=== PATIENT | female | born 1950 | race Caucasian/White ===

== ENCOUNTER 2017-12-24 12:13 | Emergency (ER) | payer MEDICARE, OTHER ==
[~2017-12-24] VITALS: Ht 167.6 cm; Wt 106.1 kg
[2017-12-24] MEDS ORDERED: ALBUTEROL/IPRATROPIUM 3 ML NEB NEB ONE (15:00)
--- NOTE | 2017-12-24 15:48 | Diagnostic Imaging Report ---
PROCEDURE: Frontal and lateral views of the chest. COMPARISON: None. INDICATIONS: SHORTNESS OF BREATH FINDINGS: Lines/tubes: None. Lungs: T mild prominence of the ulnar vasculature bilaterally. There is no evidence of pneumonia or pulmonary edema. Pleura: There is no pleural effusion or pneumothorax. Heart and mediastinum: The cardiac silhouette is mildly enlarged. Bones: No acute bony abnormality. Mild spondylosis of the thoracic spine. IMPRESSION: 1. Mild cardiomegaly and mild pulmonary venous congestion. Donna Zepeda M.D. Dictated by: Donna Zepeda M.D. on 12/24/2017 at 15:53 Electronically approved by: Donna Zepeda M.D. on 12/24/2017 at 15:53
[2017-12-24 18:36] VITALS: BP 157/72
== END 2017-12-24 18:41 | disposition home or self-care (01) ==
LOC: ER 12:13
DX: R06.02 Shortness of breath (principal); R06.09 Other forms of dyspnea; R05 Cough
CPT/HCPCS: 71046; 94640; 99284

== ENCOUNTER → 2018-01-22 | Outpatient (CLI) | payer MEDICARE, OTHER ==
--- NOTE | 2018-01-22 14:14 | Diagnostic Imaging Report ---
EXAMINATION: CT scan of the chest without contrast. TECHNIQUE: Spiral CT images of the chest were performed from the lung apices to the level of the adrenal glands. No intravenous contrast was administered per physician's request. Coronal and sagittal reformatted images were obtained. COMPARISON: Chest 2 views 12/24/2017, CT chest 11/26/2012 CLINICAL HISTORY:Changes on chest x-ray, shortness of breath, cough DISCUSSION: ABSENCE OF INTRAVENOUS CONTRAST DECREASES SENSITIVITY FOR DETECTION OF FOCAL LESIONS AND VASCULAR PATHOLOGY. LINES/TUBES: None. LUNGS AND AIRWAYS: Minimal patchy groundglass opacities and bronchial wall thickening along the posterior right lower lobe segmental bronchus (series 3, image 105), with associated linear opacity. 3 mm pulmonary nodule in the left lower lobe (series 3, image 56). No other pulmonary nodules. No masses or consolidation. Airways are clear, without loculations. PLEURA: No pneumothorax or pleural effusions. HEART AND MEDIASTINUM: The thyroid gland is normal. Mild cardiomegaly. No pericardial effusion. Aorta is nonaneurysmal. Main pulmonary artery is enlarged, measuring 3.8 cm. LYMPH NODES: No mediastinal or axillary adenopathy. Difficult to evaluate for hilar adenopathy given the lack of intravenous contrast. ABDOMEN: Limited unenhanced views of the upper abdomen show no abnormality within the visualized liver, spleen, pancreas, or adrenal glands. BONES AND SOFT TISSUES: No aggressive lytic lesion. Multilevel degenerative disc changes in the thoracic spine. Punctate and 2 mm calcifications in the left breast (series 2, image 62). IMPRESSION: 1. Findings in the posterior right lower lobe segmental bronchus distribution may represent infection such as mild bronchitis in the acute setting versus resolving infection if more chronic. No consolidation. There is associated subsegmental atelectasis or scarring. 2. 3 mm pulmonary nodule in the left lower lobe. If the patient is low risk, no further follow-up is indicated per [employer]ner society guidelines 2017. 3. Punctate 2 mm calcifications in the left breast. Correlate with mammography. Signed by: Dr. Young Encarnacion M.D. on 01/22/2018 2:11 PM
== END ==
LOC: CT 13:03
PROVIDERS: ATTEND Internal Medicine Critical Care Medicine
DX: R05 Cough (principal); R06.02 Shortness of breath; R91.8 Other nonspecific abnormal finding of lung field
CPT/HCPCS: 71250

== ENCOUNTER 2020-02-24 07:52 | Observation (INO) | payer MEDICARE, OTHER ==
[2020-02-23 15:06] LABS: BASOPHILS # (AUTO) 0.1 (0.0-0.1); BASOPHILS % 0.7 % (0.0-1.0); EOSINOPHILS # (AUTO) 0.1 (0.0-0.4); HEMATOCRIT 38.4 % (34.2-44.1); LYMPHOCYTES # (AUTO) 2.1 (1.0-3.2); LYMPHOCYTES % 25.3 % (18.0-39.1); MEAN CORPUSCULAR HEMOGLOBIN 25.8 pg (28-32); MEAN CORPUSCULAR HGB CONC 31.3 g/dL (31-35); MEAN CORPUSCULAR VOLUME 82.6 fL (81-99); MONOCYTES # (AUTO) 0.7 (0.2-0.8); NEUTROPHILS # (AUTO) 5.4 (2.1-6.9); NEUTROPHILS % 64.8 % (38.7-80.0); PLATELET COUNT 358 x10e3/uL (140-360); RED BLOOD COUNT 4.65 x10e6/uL (3.6-5.1); RED CELL DISTRIBUTION WIDTH 14.7 % (11.7-14.4)
[2020-02-23 15:19] LABS: INR 1.04; PARTIAL THROMBOPLASTIN TIME 26.6 seconds (23.8-35.5); PROTHROMBIN TIME 14.1 seconds (11.9-14.5)
[2020-02-23 15:28] LABS: CALCIUM 9.3 mg/dL (8.4-10.2); CREATININE, SERUM 1.11 mg/dL (0.57-1.11)
[~2020-02-24] VITALS: Ht 167.6 cm; Wt 111.1 kg
[~2020-02-24 07:52] MED LIST: BIOTIN2500 MCG PO; IBUPROFEN 800MG/ 200ML 200 ML IV ONE; LEVOTHYROXINE50 MCG PO; LIDOCAINE HCL (LTA) 4 ML SOLN ONE; LOSARTAN POTASS25 MG PO; METOPROLOL SUCC25 MG PO; MOBIC15 MG PO; NOVOLOG MI100 UNIT/1 SC; OCUVITE TABLET1 EAC1 PO; PROTONIX20 MG PO; ROPINIROLE HCL2 MG PO; TIZANIDINE HCL4 MG PO
[2020-02-24] MEDS ORDERED: LIDOCAINE 1% W/EPINEPHRINE 20 ML VIAL ONE (08:33)
[2020-02-24] MEDS ORDERED: VANCOMYCIN HCL 1 GM VIAL ONE (08:33)
[2020-02-24] MEDS ORDERED: THROMBIN FOR SOLN 5,000 UNIT VIAL ONE (08:33)
[2020-02-24] MEDS ORDERED: CITALOPRAM HBR20 MG PO (08:35)
[2020-02-24] MEDS ORDERED: LOSARTAN-HCTZ1 EAC2 PO (08:35)
[2020-02-24] MEDS ORDERED: glucocil PO (08:36)
[2020-02-24] MEDS ORDERED: LIMBITROL PO (08:36)
[2020-02-24] MEDS ORDERED: SINGULAIR10 MG PO (08:37)
[2020-02-24] MEDS ORDERED: CEFAZOLIN SOD 1 GM/NS 50ML 100 ML IV ONE (09:34)
[2020-02-24] MEDS ORDERED: ACETAMINOPHEN 325 MG TAB PO PRN (11:15)
[2020-02-24] MEDS ORDERED: ONDANSETRON HCL INJ 2MG/ML 2ML 2 MG/ML VIAL IV PRN (11:15)
[2020-02-24] MEDS ORDERED: CEPACOL SORE THROAT LOZENGES PO PRN (11:15)
[2020-02-24] MEDS ORDERED: MORPHINE SULFATE 5 MG/ML VIAL IM PRN (11:15)
[2020-02-24] MEDS ORDERED: HYDROMORPHONE 2MG/ML 2 MG/ML ML IV PRN (11:15)
[2020-02-24] MEDS ORDERED: PROMETHAZINE HCL (IM) 25 MG/ML VIAL IM PRN (11:15)
[2020-02-24] MEDS ORDERED: MAGNESIUM/ALUMINUM/SIMETHICONE 30 ML UDC PO PRN (11:15)
[2020-02-24] MEDS ORDERED: OXYCODONE/ACETAMINOPHEN 5-325 1 EACH TABLET PO PRN (11:15)
[2020-02-24] MEDS ORDERED: CARISOPRODOL 350 MG TAB PO PRN (11:15)
[2020-02-24] MEDS ORDERED: TIZANIDINE HCL 4 MG TAB PO PRN (11:15)
[2020-02-24] MEDS ORDERED: NEOSTIGMINE 1 MG/ML 10ML VIAL ONE (12:04)
[2020-02-24] MEDS ORDERED: DEXAMETHASONE SOD PHOS INJ 4 MG/ML VIAL ONE (12:04)
[2020-02-24] MEDS ORDERED: LIDOCAINE HCL 2% LOCAL INJ 5 ML SDV VIAL INJ ONE (12:04)
[2020-02-24] MEDS ORDERED: PROPOFOL IV EMULSION 10 MG/ML 20 ML VIAL ONE (12:04)
[2020-02-24] MEDS ORDERED: LIDOCAINE HCL 2% JELLY 5 ML TUBE ONE (12:04)
[2020-02-24] MEDS ORDERED: ONDANSETRON HCL INJ 2MG/ML 2ML 2 MG/ML VIAL ONE (12:04)
[2020-02-24] MEDS ORDERED: GLYCOPYRROLATE INJ 0.2 MG/ML VIAL ONE (12:04)
[2020-02-24] MEDS ORDERED: SEVOFLURANE INHAL SOLN 250 ML PEN BTL ONE (12:04)
[2020-02-24] MEDS ORDERED: ROCURONIUM BROMIDE 10 MG/ML 5ML VIAL IV ONE (12:04)
[2020-02-24] MEDS ORDERED: FENTANYL CITRATE/PF 100MCG/2 ML INJ ONE ×2 (13:03→13:24)
[2020-02-24 13:50] VITALS: BP 126/69
[2020-02-24 14:07] VITALS: BP 126/69
[2020-02-24] MEDS: LACTATED RINGER'S 1,000 ML IV SCH (15:04)
[2020-02-24 15:51] VITALS: BP 180/73
[2020-02-24] MEDS: OXYCODONE/ACETAMINOPHEN 5-325 1 EACH TABLET PO PRN ×2 (16:30→20:36)
[2020-02-24] MEDS: INSULIN ASPART 70/30 100 UNITS/ML VIAL SC SCH (16:57)
[2020-02-24] MEDS: CEFAZOLIN SOD 1 GM/NS 50ML 50 ML IV SCH (16:57)
[2020-02-24 20:00] VITALS: BP 139/68
[2020-02-24 20:05] VITALS: BP_SYST 121; BP_SYST 139; BP_DIAS 68; BP_DIAS 77
[2020-02-24] MEDS ORDERED: ZOLPIDEM TARTRATE 5 MG TAB PO PRN (21:00)
[2020-02-24] MEDS ORDERED: MONTELUKAST SODIUM 10 MG TAB PO SCH (21:00)
[2020-02-24] MEDS ORDERED: METOPROLOL SUCCINATE 25 MG TAB XL PO SCH (21:00)
[2020-02-25 00:05] VITALS: BP 124/57
[2020-02-25] MEDS: LACTATED RINGER'S 1,000 ML IV SCH ×2 (03:02→03:18)
[2020-02-25] MEDS: CEFAZOLIN SOD 1 GM/NS 50ML 50 ML IV SCH ×2 (03:18→10:24)
[2020-02-25 04:00] VITALS: BP 128/66
[2020-02-25] MEDS: OXYCODONE/ACETAMINOPHEN 5-325 1 EACH TABLET PO PRN ×2 (05:00→09:30)
[2020-02-25 05:41] VITALS: BP 124/57
[2020-02-25] MEDS ORDERED: LEVOTHYROXINE SODIUM 25 MCG TABLET PO SCH (06:00)
[2020-02-25] MEDS ORDERED: PANTOPRAZOLE SOD 40 MG TABEC PO SCH (07:30)
[2020-02-25 08:20] VITALS: BP 142/68
[2020-02-25] MEDS: INSULIN ASPART 70/30 100 UNITS/ML VIAL SC SCH (08:41)
[2020-02-25] MEDS ORDERED: LOSARTAN POTASSIUM 100 MG TAB PO SCH (09:00)
[2020-02-25] MEDS ORDERED: LEVOTHYROXINE SODIUM 50 MCG TAB PO SCH (09:00)
[2020-02-25] MEDS ORDERED: NON-FORMULARY MEDICATION (Losartan/Hydrochlorothiazide (Losartan-Hctz 100-12.5 Mg Tab) 1 T PO SCH (09:00)
[2020-02-25] MEDS ORDERED: MELOXICAM 7.5 MG TAB PO SCH (09:00)
[2020-02-25] MEDS ORDERED: CITALOPRAM HYDROBROMIDE 20 MG TAB PO SCH (09:00)
[2020-02-25] MEDS ORDERED: OCUVITE PRESERVISION TABLET PO SCH (09:00)
[2020-02-25] MEDS ORDERED: ROPINIROLE HCL 2 MG TAB PO SCH (09:00)
[2020-02-25] MEDS ORDERED: HYDROCHLOROTHIAZIDE 25 MG TAB PO SCH (09:00)
== END 2020-02-25 10:32 | disposition home or self-care (01) ==
LOC: OR 07:52 → PACU V 11:10 → MED/SURG 14:20
PROVIDERS: ADMIT Neurological Surgery; ATTEND Neurological Surgery
DX: M50.021 Cervical disc disorder at C4-C5 level with myelopathy (principal); M51.17 Intervertebral disc disorders with radiculopathy, lumbosacral region; E11.9 Type 2 diabetes mellitus without complications; K21.9 Gastro-esophageal reflux disease without esophagitis; G47.33 Obstructive sleep apnea (adult) (pediatric); F41.9 Anxiety disorder, unspecified; E78.5 Hyperlipidemia, unspecified; E03.9 Hypothyroidism, unspecified; Z01.810 Encounter for preprocedural cardiovascular examination; Z01.812 Encounter for preprocedural laboratory examination; Z01.818 Encounter for other preprocedural examination; Z11.59 Encounter for screening for other viral diseases; Z96.651 Presence of right artificial knee joint; Z87.891 Personal history of nicotine dependence; Z79.4 Long term (current) use of insulin
CPT/HCPCS: 20931; 22551; 22845; 36415 ×3; 71046; 72040; 80048; 82948 ×2; 85025; 85610; 85730; 86850; 86900; 88304; 93005; C1713 ×2; C9359; G0378 ×2; J0690 ×2; J1100; J1170; J1815; J2001 ×2; J2405 ×2; J2704; J2710; J3010; J3370; J7121 ×2; S0164; U0002; 77003

== ENCOUNTER 2020-12-14 11:31 | Emergency (ER) | payer MEDICARE, OTHER ==
[~2020-12-14] VITALS: Ht 167.6 cm; Wt 111.1 kg
[~2020-12-14 11:31] MED LIST changes: +CITALOPRAM HBR20 MG PO; -IBUPROFEN 800MG/ 200ML 200 ML IV ONE; -LIDOCAINE HCL (LTA) 4 ML SOLN ONE; +LIMBITROL PO; +LOSARTAN-HCTZ1 EAC2 PO; +SINGULAIR10 MG PO; +glucocil PO
[2020-12-14 12:08] LABS: BASOPHILS # (AUTO) 0.1 (0.0-0.1); BASOPHILS % 0.5 % (0.0-1.0); EOSINOPHILS # (AUTO) 0.1 (0.0-0.4); EOSINOPHILS % 1.1 % (0.0-6.0); HEMOGLOBIN 11.3 g/dL (12.0-16.0); LYMPHOCYTES # (AUTO) 1.7 (1.0-3.2); LYMPHOCYTES % 14.7 % (18.0-39.1); MEAN CORPUSCULAR HEMOGLOBIN 27.5 pg (28-32); MEAN CORPUSCULAR HGB CONC 31.4 g/dL (31-35); MEAN CORPUSCULAR VOLUME 87.6 fL (81-99); MONOCYTES # (AUTO) 1.1 (0.2-0.8); MONOCYTES % 9.5 % (4.4-11.3); NEUTROPHILS # (AUTO) 8.2 (2.1-6.9); NEUTROPHILS % 73.1 % (38.7-80.0); PLATELET COUNT 280 x10e3/uL (140-360); RED BLOOD COUNT 4.11 x10e6/uL (3.6-5.1); RED CELL DISTRIBUTION WIDTH 16.1 % (11.7-14.4)
[2020-12-14 12:31] LABS: ALANINE AMINOTRANSFERASE 14 IU/L (0-55); ALBUMIN 3.6 g/dL (3.5-5.0); ALBUMIN/GLOBULIN RATIO 1.3 (0.8-2.0); ALKALINE PHOSPHATASE 60 IU/L (40-150); ANION GAP 13.3 mmol/L (8-16); BLOOD UREA NITROGEN 19 mg/dL (7-26); BUN/CREATININE RATIO 19 (6-25); CALCIUM 8.7 mg/dL (8.4-10.2); CARBON DIOXIDE 29 mmol/L (22-29); CHLORIDE 104 mmol/L (98-107); CREATINE KINASE 126 IU/L (29-168); CREATININE, SERUM 0.99 mg/dL (0.57-1.11); EST GLOMERULAR FILTRATION RATE 55 ML/MIN (60-); GLUCOSE 69 mg/dL (74-118); POTASSIUM 3.3 mmol/L (3.5-5.1); SODIUM 143 mmol/L (136-145)
[2020-12-14 15:11] VITALS: BP 138/90
== END 2020-12-14 15:13 | disposition home or self-care (01) ==
LOC: ER 11:40
DX: E11.649 Type 2 diabetes mellitus with hypoglycemia without coma (principal); R05 Cough; J06.9 Acute upper respiratory infection, unspecified; K21.9 Gastro-esophageal reflux disease without esophagitis; G47.33 Obstructive sleep apnea (adult) (pediatric)
CPT/HCPCS: 36415; 71045; 80053; 82550; 82553; 82948; 83880; 84484; 85025; 93005; 99284; U0002

== ENCOUNTER → 2024-07-20 | Day surgery (SDC) | payer MEDICARE, OTHER ==
[2024-07-06 14:54] LABS: BASOPHILS # (AUTO) 0.1 (0.0-0.1); BASOPHILS % 0.8 % (0.0-1.0); EOSINOPHILS # (AUTO) 0.2 (0.0-0.4); EOSINOPHILS % 2.4 % (0.0-6.0); HEMATOCRIT 40.5 % (34.2-44.1); LYMPHOCYTES # (AUTO) 2.3 (1.0-3.2); LYMPHOCYTES % 29.8 % (18.0-39.1); MEAN CORPUSCULAR HGB CONC 34.6 g/dL (31-35); MEAN CORPUSCULAR VOLUME 86.9 fL (81-99); MONOCYTES # (AUTO) 0.7 (0.2-0.8); MONOCYTES % 9.2 % (4.4-11.3); NEUTROPHILS # (AUTO) 4.4 (2.1-6.9); NEUTROPHILS % 57.5 % (38.7-80.0); PLATELET COUNT 243 x10e3/uL (140-360); RED BLOOD COUNT 4.66 x10e6/uL (3.6-5.1); RED CELL DISTRIBUTION WIDTH 13.8 % (11.7-14.4); WHITE BLOOD COUNT 7.58 x10e3/uL (4.8-10.8)
[2024-07-06 15:15] LABS: CALCIUM 9.3 mg/dL (8.4-10.2)
[~2024-07-20] MED LIST changes: +ACETAMINOPHEN 1000 MG/100 ML 100 ML IV ONE; +DEXAMETHASONE SOD PHOS INJ 4 MG/ML SDV ONE; +EPHEDRINE SULFATE INJ 50 MG/ML VIAL ONE; +GLYCOPYRROLATE INJ 0.2 MG/ML VIAL ONE; +HYDROCODON-ACE1 EAC9 PO; +LIDOCAINE HCL 2% LOCAL INJ 5 ML SDV VIAL INJ ONE; -NOVOLOG MI100 UNIT/1 SC; +NOVOLOG MI100 UNIT/1 SQ; +ONDANSETRON HCL INJ 2MG/ML 2ML 2 MG/ML VIAL ONE; +PROPOFOL IV EMULSION 10 MG/ML 20 ML VIAL ONE; +SEVOFLURANE INHAL SOLN 250 ML PEN BTL ONE; +SODIUM CHLORIDE 0.9% 100 ML ONE; +TRELEGY ELLIPT1 EACH INH; +TRULICITY0.75 MG/0. SC
[2024-07-20] MEDS: LACTATED RINGER'S 1,000 ML ONE (07:34)
[2024-07-20 12:45] VITALS: BP 135/60; PULSE 61; RESP 15; O2SAT 96
== END | disposition home or self-care (01) ==
LOC: OR 07:02
PROVIDERS: ATTEND Plastic Surgery
DX: S63.042A Subluxation of carpometacarpal joint of left thumb, initial encounter (principal); M17.12 Unilateral primary osteoarthritis, left knee; G47.33 Obstructive sleep apnea (adult) (pediatric); I10 Essential (primary) hypertension; I35.1 Nonrheumatic aortic (valve) insufficiency; J45.909 Unspecified asthma, uncomplicated; R01.1 Cardiac murmur, unspecified; E11.9 Type 2 diabetes mellitus without complications; E03.9 Hypothyroidism, unspecified; E66.01 Morbid (severe) obesity due to excess calories; K21.9 Gastro-esophageal reflux disease without esophagitis; I44.0 Atrioventricular block, first degree; X58.XXXA Exposure to other specified factors, initial encounter; Z01.812 Encounter for preprocedural laboratory examination; Z01.818 Encounter for other preprocedural examination; Z79.4 Long term (current) use of insulin; Z79.85 Long-term (current) use of injectable non-insulin antidiabetic drugs; Z79.899 Other long term (current) drug therapy
CPT/HCPCS: 25447; 36415 ×2; 71046; 80048; 82948; 85025; C1713; J0131; J0690; J1100; J2003; J2405; J2704; J7050; J7121